=== PATIENT | female | born 1955 | race Caucasian/White ===

== ENCOUNTER → 2016-11-06 | Outpatient (CLI) | payer BC ==
--- NOTE | 2016-11-09 09:36 | ECHOCARDIOGRAPHY REPORT ---
DATE OF SERVICE: 11/06/2016 MEASUREMENT: LVID end diastolic 3.9, IVS thickness 1.1, LVPW thickness 0.8cm, left atrial diameter 2.6, ejection fraction 60%. FINDINGS: 1. Technical quality is good. 2. The left ventricle is normal in size with normal contractility, systolic function appeared to be normal. Estimated ejection fraction 60%. 3. The left atrium is normal in size. No clot or thrombus were seen within the left atrium. 4. The right atrium and right ventricle are normal in size. No clot or thrombus were seen within the right side. 5. Mitral valve is normal in morphology with mild mitral regurgitation noted by color Doppler flow. No mitral valve prolapse. No mitral valve stenosis. 6. Aortic valve is calcified. There is no significant aortic valve stenosis or regurgitation seen. 7. Tricuspid valve is normal in morphology with mild tricuspid regurgitation noted by color Doppler flow. Doppler across the tricuspid valve estimated pulmonary artery pressure of 16+ right atrial pressure. 8. Pulmonic valve is functioning normally. 9. No pericardial effusion. CONCLUSION: 1. Normal left ventricular size and systolic function. Estimated ejection fraction 60%. 2. Aortic valve sclerosis, no aortic stenosis. 3. Mild mitral and tricuspid regurgitation. 4. Estimated pulmonary artery pressure of 25 mmHg. Job ID: [id number] DocumentID: [id number] Dictated Date: 11/09/2016 07:56:28 Special Education Para Professional Date: 11/09/2016 08:33:54 Dictated By: LOLA KENNEDY MD
== END ==
LOC: CARD 07:40
PROVIDERS: ATTEND Internal Medicine Cardiovascular Disease
DX: I10 Essential (primary) hypertension (principal); R06.02 Shortness of breath; E78.2 Mixed hyperlipidemia; R55 Syncope and collapse
CPT/HCPCS: 93306

== ENCOUNTER 2017-05-12 05:38 | Outpatient (CLI) | payer BC ==
[~2017-05-12] VITALS: Ht 160 cm; Wt 76.2 kg
[2017-05-12] MEDS ORDERED: SIMV20TA3 PO (09:18)
[2017-05-12] MEDS ORDERED: METO-333 PO (09:18)
[2017-05-12] MEDS ORDERED: OMG1KC PO (09:18)
[2017-05-12] MEDS ORDERED: CYAN250010 PO (09:18)
[2017-05-12] MEDS ORDERED: CITA10TA7 PO (09:18)
== END 2017-05-12 09:23 ==
LOC: PREOP 05:38
PROVIDERS: ATTEND Internal Medicine
DX: Z01.818 Encounter for other preprocedural examination (principal); Z12.11 Encounter for screening for malignant neoplasm of colon

== ENCOUNTER 2017-05-21 07:30 | Day surgery (SDC) | payer BC ==
--- NOTE | 2017-05-03 09:34 | HISTORY AND PHYSICAL ---
DATE OF SERVICE: COLONOSCOPY HISTORY AND PHYSICAL DATE OF ADMISSION: 05/21/2017. HISTORY OF PRESENT ILLNESS: The patient is a 61-year-old white female, referred by Dr. Sun for screening colonoscopy. She had one previous screening colonoscopy nearly [address] Omalley. The report was reviewed. No neoplasia was identified; however, colonoscopy was only performed to the hepatic flexure due to reported colon redundancy. Subsequent barium enema evaluation for right colonic visualization was unremarkable. The patient reports that she feels well, she does have occasional constipation, but it has been well controlled as of late. She denies any bowel habit change, bright red blood per rectum or melena. Weight and energy levels have been stable. PAST MEDICAL HISTORY: Significant for hyperlipidemia and palpitations, for which she takes simvastatin 20 mg daily, metoprolol 12.5 mg respectively. OTHER MEDICATIONS: Include citalopram 10 mg daily, fish oil 200 mg daily and B12 500 mg daily. PAST SURGICAL HISTORY: Significant for meningioma resection 12 years ago with no neurologic sequelae. In the distant past history, she had a tonsillectomy and adenoidectomy. FAMILY HISTORY: Mother is still living at the age of 88 with no health problems. Father of lung cancer at the age of 75 with a history of heavy smoking. She is not aware of any family history for colon cancer or inflammatory bowel disease. SOCIAL HISTORY: She does not smoke, reports moderate alcohol intake. She is employed. PHYSICAL EXAMINATION: GENERAL: Reveals a well-appearing white female, in no acute distress. VITAL SIGNS: Blood pressure 110/70, heart rate 72 and regular, respiratory rate 16 and nonlabored. HEENT: Oral cavity reveals a Mallampati class 3 pharyngeal configuration. Pharynx is clear. No exudates are noted. NECK: Revealed no JVD, adenopathy or bruits. CHEST: Clear to auscultation. CARDIOVASCULAR: Reveals regular rate and rhythm without murmur, S3 or S4. ABDOMEN: Soft, supple without mass, organomegaly or tenderness. Bowel sounds are positive in all four quadrants. EXTREMITIES: Reveal no cyanosis, clubbing or edema. ASSESSMENT AND PLAN: 1. The patient is set up for a screening colonoscopy on 05/21. Prep instructions with Suprep kit were given. Her electronic medical record was evaluated. 40 minutes of my personal care time was spent in evaluation of the patient and her medical record. Another 15 minutes of staff time was spent going over prep instructions, answering questions and setting up the procedure. I thank you for the referral of this pleasant lady. Job ID: [id number] DocumentID: [id number] Dictated Date: 04/29/2017 18:41:47 News Producer Date: 04/29/2017 20:45:51 Dictated By: CHELLE MITCHELL MD
[~2017-05-21] VITALS: Ht 160 cm; Wt 76.2 kg
--- NOTE | 2017-05-21 07:23 | Pre-Op Note & Conscious Sedat ---
Pre-Operative Progress Note H&P Reviewed The H&P was reviewed, patient examined and no changes noted. Date H&P Reviewed: May 21, 2017 Time H&P Reviewed: 07:23 Conscious Sedation Pre-Proced ASA Class: 2 Airway Mallampati Classification: ([place] appropriate class) I. II. III, IV Lungs Heart ASA score ASA 1: a normal healthy patient ASA 2: a patient with a mild systemic disease (mid diabetes, controlled hypertension, obesity ASA 3: a patient with a severe systemic disease that limits activity (angina , COPD, prior Myocardial infarction) ASA 4: a patient with an incapacitating disease that is a constant threat to life (CHF, renal failure) ASA 5: a moribund patient not expected to survive 24 hrs. (ruptured aneurysm) ASA 6: a declared brain patient whose organs are being harvested. For emergent operations, add the letter E after the classification Grade 3 Sedation Plan: Analgesia, Amnesia, Plan communicated to team members, Discussed options with patient/fam, Discussed risks with patient/fam Note The patient is an appropriate candidate to undergo the planned procedure, sedation, and anesthesia. The patient immediately re-assessed prior to indication. CHELLE MITCHELL MD May 21, 2017 07:23
[~2017-05-21 07:30] MED LIST: 1/2 NS IV SOLUTION 1,000 ML IV ONE; CITA10TA7 PO; CYAN250010 PO; METO-333 PO; OMG1KC PO; SIMV20TA3 PO
--- OUTSIDE RECORDS SUMMARY | 2017-05-21 07:34 | XMS REPORT | Continuity of Care Document ---
Author Author [facility] Organization [facility] Address Unknown Phone Unavailable Allergies Active Description Code Type Severity Reaction Onset Reported/Identified Relationship to Patient Clinical Status Yes NKANo Known Allergies NKA Miscellaneous Allergy Unknown N/ A 12/31/2005 Yes No Known Drug Allergies [id number] Drug Allergy Unknown N/ A 05/12/2017 Medications Problems Date Dx Coded Attending Type Code Diagnosis Diagnosed By 11/23/2014 Ot V76.12 11/23/2014 Ot 401.9 11/23/2014 Ot 780.2 11/23/2014 Ot 397.0 11/23/2014 Ot 401.9 11/23/2014 Ot 424.0 11/23/2014 Ot 780.2 11/23/2014 Ot 793.81 11/23/2014 Ot V76.12 11/23/2014 Ot 611.72 11/23/2014 Ot 793.81 11/23/2014 Ot 610.0 11/23/2014 Ot 793.82 11/23/2014 Ot V76.12 11/23/2014 Ot 786.50 11/23/2014 MELVIN ALVARADO MD Ot 780.2 11/23/2014 MELVIN ALVARADO MD Ot V12.41 11/23/2014 MELVIN ALVARADO MD Ot 780.2 11/23/2014 MELVIN ALVARADO MD Ot V12.41 11/23/2014 MELVIN ALVARADO MD Ot 435.8 11/23/2014 MELVIN ALVARADO MD Ot V76.12 11/23/2014 MELVIN ALVARADO MD Ot V76.12 08/28/2015 Ot 401.9 08/28/2015 Ot 780.2 08/28/2015 Ot 397.0 08/28/2015 Ot 401.9 08/28/2015 Ot 424.0 08/28/2015 Ot 780.2 08/28/2015 Ot 793.81 08/28/2015 Ot V76.12 08/28/2015 Ot 611.72 08/28/2015 Ot 793.81 08/28/2015 Ot 610.0 08/28/2015 Ot 793.82 08/28/2015 Ot V76.12 08/28/2015 Ot 786.50 08/28/2015 MELVIN ALVARADO MD Ot 780.2 08/28/2015 JENNY TORRES, MELVIN Belle Ot V12.41 08/28/2015 MELVIN ALVARADO MD Ot 780.2 08/28/2015 MELVIN ALVARADO MD Ot V12.41 08/28/2015 MELVIN ALVARADO MD Ot 435.8 08/28/2015 MELVIN ALVARADO MD Ot V76.12 08/28/2015 MELVIN ALVARADO MD Ot V76.12 08/29/2015 JOHN CAMARGO DO Ot Z12.31 09/16/2015 JOHN CAMARGO DO Ot Z12.31 11/06/2016 Ot 793.82 INCONCLUSIVE MAMMOGRAM 11/06/2016 Ot V76.12 OTH SCREEN MAMMO-MALIGN NEOPLASM OF JOHNNY 11/06/2016 Ot 786.50 CHEST PAIN NOS 11/06/2016 MELVIN ALVARADO MD Ot 780.2 SYNCOPE AND COLLAPSE 11/06/2016 MELVIN ALVARADO MD Ot V12.41 HX BENIGN NEOPLASM/BRAIN 11/06/2016 MELVIN ALVARADO MD Ot 780.2 SYNCOPE AND COLLAPSE 11/06/2016 MELVIN ALVARADO MD Ot V12.41 HX BENIGN NEOPLASM/BRAIN 11/06/2016 MELVIN ALVARADO MD Ot 435.8 TRANS CEREB ISCHEMIA NEC 11/06/2016 MELVIN ALVARADO MD Ot V76.12 OTH SCREEN MAMMO-MALIGN NEOPLASM OF JOHNNY 11/06/2016 MELVIN ALVARADO MD Ot V76.12 OTH SCREEN MAMMO-MALIGN NEOPLASM OF JOHNNY 11/06/2016 JOHN CAMARGO DO Ot Z12.31 ENCNTR SCREEN MAMMOGRAM FOR MALIGNANT NE 11/09/2016 LOLA KENNEDY MD Ot E78.2 MIXED HYPERLIPIDEMIA 11/09/2016 LOLA KENNEDY MD Ot I10 ESSENTIAL (PRIMARY) HYPERTENSION 11/09/2016 LOLA KENNEDY MD Ot R06.02 SHORTNESS OF BREATH 11/09/2016 LOLA KENNEDY MD Ot R55 SYNCOPE AND COLLAPSE 11/18/2016 LOLA KENNEDY MD Ot E78.2 MIXED HYPERLIPIDEMIA 11/18/2016 LOLA KENNEDY MD Ot I10 ESSENTIAL (PRIMARY) HYPERTENSION 11/18/2016 LOLA KENNEDY MD Ot R06.02 SHORTNESS OF BREATH 11/18/2016 LOLA KENNEDY MD, Ot R55 SYNCOPE AND COLLAPSE 04/30/2017 Ot 793.82 INCONCLUSIVE MAMMOGRAM 04/30/2017 Ot V76.12 OTH SCREEN MAMMO-MALIGN NEOPLASM OF JOHNNY 04/30/2017 Ot 786.50 CHEST PAIN NOS 04/30/2017 MELVIN ALVARADO MD Ot 780.2 SYNCOPE AND COLLAPSE 04/30/2017 MELVIN ALVARADO MD Ot V12.41 HX BENIGN NEOPLASM/BRAIN 04/30/2017 MELVIN ALVARADO MD Ot 780.2 SYNCOPE AND COLLAPSE 04/30/2017 MELVIN ALVARADO MD Ot V12.41 HX BENIGN NEOPLASM/BRAIN 04/30/2017 MELVIN ALVARADO MD Ot 435.8 TRANS CEREB ISCHEMIA NEC 04/30/2017 MELVIN ALVARADO MD Ot V76.12 OTH SCREEN MAMMO-MALIGN NEOPLASM OF JOHNNY 04/30/2017 MELVIN ALVARADO MD Ot V76.12 OTH SCREEN MAMMO-MALIGN NEOPLASM OF JOHNNY 04/30/2017 JOHN CAMARGO DO Ot Z12.31 ENCNTR SCREEN MAMMOGRAM FOR MALIGNANT NE 04/30/2017 LOLA KENNEDY MD Ot E78.2 MIXED HYPERLIPIDEMIA 04/30/2017 LOLA KENNEDY MD Ot I10 ESSENTIAL (PRIMARY) HYPERTENSION 04/30/2017 LOLA KENNEDY MD Ot R06.02 SHORTNESS OF BREATH 04/30/2017 LOLA KENNEDY MD Ot R55 SYNCOPE AND COLLAPSE 05/03/2017 GRAHAM RUGGIERO MD Ot Z12.31 ENCNTR SCREEN MAMMOGRAM FOR MALIGNANT NE 05/17/2017 GRAHAM RUGGIERO MD, Ot Z12.31 ENCNTR SCREEN MAMMOGRAM FOR MALIGNANT NE Procedures Results Encounters ACCT No. Visit Date/Time Discharge Status Pt. Type Provider Facility Loc./Unit Complaint [id number] 05/12/2017:38:00 2016 09:23:00 DIS Outpatient CHELLE MITCHELL MD [facility] PREOP COLONOSCOPY [id number] 04/30/2017 09:52:00 2016 23:59:59 CLS Outpatient GRAHAM RUGGIERO MD [facility] RAD SCREENING [id number] 11/06/2016 07:40:00 2016 23:59:59 CLS Outpatient LOLA KENNEDY MD [facility] CARD I10,R06.02,E78.2,R55 [id number] 08/28/2015 10:20:00 2015 23:59:59 CLS Outpatient JOHN CAMARGO DO [facility] RAD SCREENING [id number] 03/21/2014 08:37:00 2013 23:59:59 CLS Outpatient MELVIN ALVARADO MD [facility] RAD ROUTINE [id number] 03/08/2013 14:40:00 2012 23:59:59 CLS Outpatient MELVIN ALVARADO MD [facility] RAD SCREENING [id number] 01/06/2013 13:48:00 2012 23:59:59 CLS Outpatient MELVIN ALVARADO MD [facility] RAD MICROVASCULAR ISCHEMIC CHANGES [id number] 01/04/2013 10:08:00 2012 23:59:59 CLS Outpatient MELVIN ALVARADO MD [facility] RAD SYNCOPE [id number] 01/04/2013 06:28:00 2012 23:59:59 CLS Outpatient MELVIN ALVARADO MD [facility] LAB SYNCOPE [id number] 12/30/2012 13:28:00 2012 23:59:59 CLS Outpatient [id number] 05/21/2017 07:30:00 ACT Outpatient CHELLE MITCHELL MD [facility] ENDO SCREENING [id number] 03/01/2012 11:49:00 Document Registration [id number] 01/25/2012 10:49:00 Document Registration [id number] 03/17/2011 14:03:00 Document Registration [id number] 12/10/2010 08:59:00 Document Registration [id number] 12/01/2010 10:06:00 Document Registration [id number] 04/02/2010 08:10:00 Document Registration [id number] 03/31/2010 09:25:00 Document Registration [id number] 09/23/2009 08:00:00 Document Registration
[2017-05-21] MEDS ORDERED: 1/2 NS IV SOLUTION 1,000 ML IV STA (07:40)
[2017-05-21] MEDS ORDERED: MIDAZOLAM 2 MG/2 ML (VERSED) VIAL IVP PRN (07:45)
[2017-05-21] MEDS ORDERED: LIDOCAINE JELLY 2% (XYLOCAINE) 5 ML TUBE MM PRN (07:45)
[2017-05-21 07:50] VITALS: BP 120/70
[2017-05-21] MEDS ORDERED: LIDOCAINE JELLY 2% (XYLOCAINE) 5 ML TUBE ONE (07:50)
[2017-05-21] MEDS ORDERED: fentaNYL INJECTION 100 MCG/2 ML AMP ONE (07:50)
[2017-05-21] MEDS ORDERED: MIDAZOLAM 2 MG/2 ML (VERSED) VIAL ONE ×2 (07:51)
[2017-05-21] MEDS: fentaNYL INJECTION 100 MCG/2 ML AMP IVP PRN ×2 (08:05→08:09)
[2017-05-21 09:15] VITALS: BP 122/76
[2017-05-21 09:39] VITALS: BP 122/76
--- NOTE | 2017-05-23 22:53 | OPERATIVE REPORT ---
DATE OF SERVICE: 05/21/2017 COLONOSCOPY SUMMARY INDICATION FOR THE PROCEDURE: Screening colon. The patient was placed in the left lateral decubitus position. Prior to undergoing colonoscopy, a digital rectal evaluation was performed. Anal sphincter tone was normal and the perianal reflex was intact. No abnormalities noted on additional inspection of anal canal or distal rectal vault. The colonoscope was then inserted into the rectum under direct visualization and advanced to the cecum. The cecum was identified by identification of the ileocecal valve and cecal strap. Photographic documentation was obtained. A careful inspection was made as the colonoscope was withdrawn. The patient tolerated the procedure well. FINDINGS: There was no evidence for internal or external hemorrhoids in the rectum, sigmoid colon, descending colon, splenic flexure, transverse colon, hepatic flexure, ascending colon and cecum were unremarkable. No evidence for diverticular disease or neoplasia was identified. ASSESSMENT: Normal colonoscopy to the cecum. Would advocate consideration for repeat screening colonoscopy in 10 years. I thank you for the referral of this pleasant lady. Job ID: [id number] DocumentID: [id number] Dictated Date: 05/23/2017 15:38:11 Supervisor Gear Repair Date: 05/23/2017 22:52:05 Dictated By: CHELLE MITCHELL MD
== END 2017-05-21 09:35 | disposition home or self-care (01) ==
LOC: ENDO 07:30
PROVIDERS: ATTEND Internal Medicine
DX: Z12.11 Encounter for screening for malignant neoplasm of colon (principal); E78.5 Hyperlipidemia, unspecified; Z79.899 Other long term (current) drug therapy

== ENCOUNTER → 2019-05-08 | Outpatient (CLI) | payer MEDICARE, OTHER ==
[~2019-05-08] MED LIST changes: -1/2 NS IV SOLUTION 1,000 ML IV ONE
== END ==
LOC: CARD 11:23
PROVIDERS: ATTEND Internal Medicine Cardiovascular Disease
DX: E78.2 Mixed hyperlipidemia (principal); I10 Essential (primary) hypertension; R06.02 Shortness of breath; R07.9 Chest pain, unspecified
CPT/HCPCS: 93306

== ENCOUNTER → 2019-05-22 | Outpatient (CLI) | payer MEDICARE, OTHER ==
[~2019-05-22] VITALS: Ht 160 cm; Wt 78.0 kg
[~2019-05-22] MED LIST changes: +CATHETER FLUSH 10 ML SYR IV PRN
[2019-05-22 09:23] VITALS: BP 137/82
[2019-05-22 09:29] VITALS: BP 142/92
[2019-05-22 09:31] VITALS: BP 183/91
[2019-05-22 09:33] VITALS: BP 130/93
[2019-05-22 09:34] VITALS: BP 134/94
--- NOTE | 2019-05-22 21:03 | STRESS TEST ---
DATE OF SERVICE: 05/22/2019 EXERCISE MYOVIEW STRESS TEST REPORT REFERRING PHYSICIAN: Dr. Sun. Baseline heart rate is 73, baseline blood pressure 137/82. Baseline EKG is sinus rhythm with no ischemic changes. In summary, the patient was injected with 10.17 mCi of technetium-99 Myoview and the resting images were acquired. Then, the patient started exercising with a baseline heart rate, blood pressure and EKG mentioned above, was able to exercise for 6 minutes and 45 seconds on standard Eliseo protocol. With peak exercise level, EKG was showing nondiagnostic changes, blood pressure was 142/92. During recovery, heart rate and blood pressure returned to baseline, EKG returned to baseline. The resting and stress images were reviewed and compared in the short axis, horizontal long axis, and vertical long axis views. Review of the images showed breast attenuation with no significant ischemia or infarction. SSS is 2, SDS 2, TID value 0.98. On the gated images, the left ventricle appeared to be normal size with normal contractility. Calculated ejection fraction 76%. CONCLUSION: 1. Fair exercise tolerance for a total of 6 minutes 45 seconds, total of 8.1 mets achieving 91% of maximum expected heart rate. 2. Appropriate heart rate with hypertensive response to exercise with peak blood pressure 183/91 returned to baseline during recovery. 3. Minimal nondiagnostic EKG changes with exercise returned to baseline during recovery. 4. No significant ischemia or infarction on SPECT images. 5. Normal left ventricular size with normal contractility. Calculated ejection fraction 76%. Job ID: [id number] DocumentID: [id number] Dictated Date: 05/22/2019 16:44:32 Recruitment Assistant Date: 05/22/2019 21:01:35 Dictated By: LOLA KENNEDY MD
== END ==
LOC: CARD 07:41
PROVIDERS: ATTEND Internal Medicine Cardiovascular Disease
DX: E78.2 Mixed hyperlipidemia (principal); I10 Essential (primary) hypertension; R07.9 Chest pain, unspecified
CPT/HCPCS: 78452; 93017

== ENCOUNTER → 2019-06-06 | Outpatient (CLI) | payer MEDICARE, OTHER ==
[~2019-06-06] MED LIST changes: -CATHETER FLUSH 10 ML SYR IV PRN
--- NOTE | 2019-06-06 13:02 | Diagnostic Imaging Report ---
INDICATION: Routine screening. COMPARISON: 04/30/2017 and 08/28/2015. TECHNIQUE: 2D and 3D bilateral screening mammography was performed with CAD. FINDINGS: Both breasts are heterogeneously dense, limiting the sensitivity of mammography. The circumscribed masses in both breasts appear to be stable. There are benign calcifications in both breasts. No spiculated mass is identified. No malignant appearing microcalcifications are seen. IMPRESSION: No mammographic features suspicious for malignancy are identified. ACR BI-RADS Category 2: Benign findings. Result letter will be mailed to the patient. Note: At least 10% of breast cancer is not imaged by mammography. Dictated by: Dictated on workstation # [id number]
== END ==
LOC: RAD 08:00
PROVIDERS: ATTEND Family Medicine
DX: Z12.31 Encounter for screening mammogram for malignant neoplasm of breast (principal)
CPT/HCPCS: 77067

== ENCOUNTER → 2020-06-07 | Outpatient (CLI) | payer MEDICARE, OTHER ==
[~2020-06-07] MED LIST changes: +SIMV20TA26 PO; -SIMV20TA3 PO
--- NOTE | 2020-06-07 10:33 | Diagnostic Imaging Report ---
INDICATION: Routine screening. Comparison is made with prior mammogram from 06/06/2019 and 04/30/2017. 2-D and 3-D bilateral screening mammography was performed with CAD. Both breasts are heterogeneously dense, limiting the sensitivity of mammography. Circumscribed masses in the left breast appear stable. Benign calcifications are stable. No new mass or malignant appearing microcalcifications are seen. Axillae are unremarkable. IMPRESSION: BI-RADS Category 2 No mammographic features suspicious for malignancy are identified. ACR BI-RADS Category 2: Benign findings. Result letter will be mailed to the patient. Note: At least 10% of breast cancer is not imaged by mammography. Dictated by: Dictated on workstation # [id number]
== END ==
LOC: RAD 08:00
PROVIDERS: ATTEND Family Medicine
DX: Z12.31 Encounter for screening mammogram for malignant neoplasm of breast (principal)
CPT/HCPCS: 77063; 77067

== ENCOUNTER → 2020-10-25 | Outpatient (CLI) | payer MEDICARE, OTHER ==
[~2020-10-25] MED LIST changes: +GADOBUTROL 10 MMOL/10 ML (GADAVIST) VIAL IV ONE
--- NOTE | 2020-10-25 10:14 | Diagnostic Imaging Report ---
PROCEDURE: MR imaging of the brain with and without contrast. TECHNIQUE: Multiplanar, multisequence MR imaging of the brain was performed with and without contrast. INDICATION: History of meningioma. New onset vertigo. COMPARISON: 01/04/2013. Findings: No acute ischemia, mass, or hemorrhage. No abnormal enhancement. Interval increase in focal and confluent areas of T2/FLAIR hyperintense signal in the periventricular and subcortical white matter. The ventricles, cortical sulci, and basilar cisterns are symmetric and unremarkable. The sellar and suprasellar regions have a normal appearance. The brainstem and posterior fossa are unremarkable. The paranasal sinuses and left mastoid air cells demonstrate normal signal characteristics. The globes and orbits are symmetric and unremarkable. Prior surgical changes are noted in the right temporal bone. IMPRESSION: 1. No acute ischemia, mass, or hemorrhage. No abnormal enhancement. 2. Interval increase in focal confluent areas of T2 hyperintense signal in the periventricular and subcortical white matter, likely representing increasing chronic microvascular disease. 3. Postsurgical changes are again noted in the right temporal bone, likely presenting with the patient's history of prior meningioma. No evidence of enhancement in this area to suggest local recurrence. Dictated by: Dictated on workstation # [id number]
== END ==
LOC: RAD 08:16
PROVIDERS: ATTEND Family Medicine
DX: R42 Dizziness and giddiness (principal); Z86.011 Personal history of benign neoplasm of the brain; Z98.890 Other specified postprocedural states
CPT/HCPCS: 70553

== ENCOUNTER → 2021-05-26 | Outpatient (CLI) | payer MEDICARE, OTHER ==
[~2021-05-26] MED LIST changes: -CITA10TA7 PO; +CITA10TA9 PO; -GADOBUTROL 10 MMOL/10 ML (GADAVIST) VIAL IV ONE
--- NOTE | 2021-05-26 11:29 | Diagnostic Imaging Report ---
INDICATION: Pain in the right thumb for one month. TIME OF EXAM: 10:46 a.m. FINDINGS: Three views of the right hand were obtained. Distal radius and ulna are intact. Carpus is intact. Metacarpals are intact. Phalanges appear intact. No fractures are seen. IMPRESSION: No acute bony abnormality is detected. Dictated by: Dictated on workstation # [id number]
== END ==
LOC: RAD 10:03
PROVIDERS: ATTEND Nurse Practitioner Family
DX: M79.644 Pain in right finger(s) (principal)
CPT/HCPCS: 73130

== ENCOUNTER → 2021-06-09 | Outpatient (CLI) | payer MEDICARE, OTHER ==
--- NOTE | 2021-06-09 10:56 | Diagnostic Imaging Report ---
INDICATION: Routine screening. Comparison is made prior mammogram from 06/07/2020 and 06/06/2019. 2-D and 3-D bilateral screening mammography was performed with CAD. Both breasts are heterogeneously dense, limiting the sensitivity of mammography. A circumscribed mass retroareolar left breast is stable. A larger lesion in the left mid breast on prior study is no longer appreciated, likely diminution of a cyst. There are benign calcifications in both breasts. No spiculated mass or malignant-appearing microcalcifications are seen. Axillae are unremarkable. IMPRESSION: No mammographic features suspicious for malignancy are identified. BI-RADS Category 2 ACR BI-RADS Category 2: Benign findings. Result letter will be mailed to the patient. Note: At least 10% of breast cancer is not imaged by mammography. Dictated by: Dictated on workstation # [id number]
== END ==
LOC: RAD 08:45
PROVIDERS: ATTEND Family Medicine
DX: Z12.31 Encounter for screening mammogram for malignant neoplasm of breast (principal)
CPT/HCPCS: 77063; 77067

== ENCOUNTER → 2022-06-23 | Outpatient (CLI) | payer MEDICARE, OTHER ==
--- NOTE | 2022-06-23 17:00 | Diagnostic Imaging Report ---
INDICATION: Postmenopausal screening COMPARISON: Baseline FINDINGS: AP Spine L1-L4: [BMD (g/cm2): 1.241] [T-Score: 0.3] [Z-Score: 1.6] [BMD Previous: na] [BMD % Change: na] LT Hip Neck: [BMD (g/cm2): 0.883] [T-Score: -1.1] [Z-Score: 0.3] LT Hip Total: [BMD (g/cm2):0.958] [T-Score:-0.2] [Z-Score: 0.9] [BMD Previous: na] [BMD % Change: na] RT Hip Neck: [BMD (g/cm2):0.854] [T-Score:-1.3] [Z-Score:0.0] RT Hip Total: [BMD (g/cm2):0.969] [T-score:-0.3] [Z-Score:0.8] [BMD Previous:na] [BMD % Change:na] *Indicates significant change from prior examination based on 95% confidence level. World Health Organization criteria for BMD interpretation classify patients as Normal (T-score at or above -1.0), Osteopenic (T-score between -1.0 and -2.5) or Osteoporotic (T-score at or below -2.5). LIMITATIONS AND MODIFICATION: None. FRACTURE RISK (FRAX SCORE): The ten year probability of (%): Major Osteoporotic Fracture: [9.1] Hip Fracture: [1.0] IMPRESSION: 1. Osteopenia (Low bone mass). 2. Baseline examination. 3. See below National Osteoporosis Foundation guidelines on when to potentially initiate pharmacologic therapy. Based on the National Osteoporosis Foundation Guidelines, pharmacologic treatment should be initiated in any of the following, unless clinical conditions suggest otherwise: * Any patient with prior fragility fracture of the hip or vertebrae. A spine fracture indicates 5X risk for subsequent spine fracture and 2X risk for subsequent hip fracture. * Osteoporosis (T-score <-2.5). * Postmenopausal women and men age 50 and older with low bone mass/osteopenia (T-score between -1.0 and -2.5) by DXA and 10-year major osteoporotic fracture greater than 20% or a 10-year probability of hip fracture greater than 3%. These fracture risks are supplied above in the FRAX score, if applicable. * Clinician judgement and/or patient preferences may indicate treatment for people with 10-year fracture probabilities above or below these levels. Dictated by: Dictated on workstation # [id number]
--- NOTE | 2022-06-24 09:15 | Diagnostic Imaging Report ---
INDICATION: Routine screening. Comparison is made with prior mammogram 06/09/2021 and 06/07/2020. 2-D and 3-D bilateral screening mammography was performed with CAD. Both breasts are heterogeneously dense, limiting the sensitivity of mammography. A circumscribed densities bilaterally appears stable consistent with cysts. No new mass or malignant appearing microcalcifications are seen. There are benign calcifications present. Axillae are unremarkable. IMPRESSION: BI-RADS Category 2 No mammographic features suspicious for malignancy are identified. ACR BI-RADS Category 2: Benign findings. Result letter will be mailed to the patient. Note: At least 10% of breast cancer is not imaged by mammography. Dictated by: Dictated on workstation # [id number]
== END ==
LOC: RAD 09:22
PROVIDERS: ATTEND Family Medicine
DX: Z12.31 Encounter for screening mammogram for malignant neoplasm of breast (principal); Z13.820 Encounter for screening for osteoporosis; M85.80 Other specified disorders of bone density and structure, unspecified site; Z78.0 Asymptomatic menopausal state
CPT/HCPCS: 77063; 77067; 77080